=== PATIENT | male | born 1995 | race Caucasian/White ===

== ENCOUNTER → 2018-09-05 | Outpatient (CLI) | payer BC ==
--- NOTE | 2018-09-05 13:07 | XR ---
EXAMINATION TYPE: XR chest 2V DATE OF EXAM: 09/05/2018 COMPARISON: 10/19/2009 TECHNIQUE: PA and lateral views submitted. HISTORY: Cough FINDINGS: The lungs are clear and there is no pneumothorax, pleural effusion, or focal pneumonia. Chronic lef t AC joint injury suspected correlate clinically. IMPRESSION: 1. No acute process. 2. 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 Correlate clinical ly.
== END ==
LOC: RADXRMAIN 10:08
PROVIDERS: ATTEND Family Medicine
DX: S43.102A Unspecified dislocation of left acromioclavicular joint, initial encounter (principal); Z00.00 Encounter for general adult medical examination without abnormal findings
CPT/HCPCS: 71046

== ENCOUNTER 2018-09-23 23:45 | Emergency (ER) | payer BC ==
[2018-09-23 23:54] VITALS: BP 120/73; RESP 20; TEMP 97.9
[2018-09-24] MEDS ORDERED: IPRATROPIUM-ALBUTEROL 3 ML NEB INHALATION STA (00:40)
[2018-09-24] MEDS ORDERED: BENZONATATE 100 MG CAP PO STA (00:40)
--- NOTE | 2018-09-24 00:54 | ED ---
URI HPI - General Chief Complaint: Upper Respiratory Infection Stated Complaint: Cough Time Seen by Provider: 09/23/18 23:57 Source: patient, family Mode of arrival: ambulatory Limitations: no limitations - History of Present Illness Initial Comments: Kevin is a previously healthy 23-year-old male who presents to the emergency department today for reevaluation of a chronic cough. Patient reports that he' s had a cough for approximately 2-3 months duration. He has been seen by his primary care physician and was advised that he failed some of his breathing tests is not sure exactly which. Patient was advised to follow up with pulmonology but has been unable to obtain an appointment. Patient spent the last week in [place] for vacation and reports that while down there his cough was significantly worse which prompted him to go to an urgent care where he was prescribed a seven-day course of steroids and an albuterol inhaler. Patient reports he feels these improve his symptoms minimally. Patient comes the ER today because his family is concerned about his cough. Patient's currently staying at his parents house while on break from college. They've been distressed by, she has been coughing and they are concerned that this can impact his sleeping and his ability to focus at school when he returns to school tomorrow. Patient states that he actually wasn't concerned and didn't feel his cough is worsening today however it was distracting his father from watching a movie so they decided to come to the ER for reevaluation. denies any international travel, any travel to the [facility], any gave exploration. The patient is a nonsmoker. There is no family history of any chronic pulmonary diseases. Cough is not associated with any fevers, chills or chest pain. The cough is nonproductive. Patient doesn't feel that the cough is been getting better or worse over the past 2 months. Patient's primary complaint is that the cough keeps him from sleeping all night. - Related Data Home Medications Medication Instructions Recorded Confirmed Mometasone/Formoterol [Dulera 100 2 puff INHALATION BID 09/23/18 09/23/18 Mcg/5 Mcg Inhaler] Previous Rx's Medication Instructions Recorded Benzonatate [Tessalon Perles] 100 mg PO TID #30 cap 09/24/18 Allergies Allergy/AdvReac Type Severity Reaction Status Date / Time No Known Allergies Allergy Verified 09/23/18 23:53 Review of Systems ROS Statement: Those systems with pertinent positive or pertinent negative responses have been documented in the HPI. ROS Other: All systems not noted in ROS Statement are negative. Past Medical History Past Medical History: No Reported History History of Any Multi-Drug Resistant Organisms: None Reported Past Surgical History: Adenoidectomy, Ear Surgery Past Psychological History: No Psychological Hx Reported Smoking Status: Never smoker Past Alcohol Use History: Occasional Past Drug Use History: None Reported General Exam - General Exam Comments Initial Comments: Physical Exam GENERAL: Patient is well-developed and well-nourished. Patient is nontoxic and well- hydrated and is in no distress. HENT: Normocephalic, Atraumatic. EYES: PERRL, EOMI PULMONARY: Unlabored respirations. No audible rales rhonchi or wheezing was noted. The patient is observed to have a nonproductive dry cough intermittently during exam CARDIOVASCULAR: There is a regular rate and rhythm without any murmurs gallops or rubs. ABDOMEN: Soft and nontender with normal bowel sounds. SKIN: Skin is clear with no lesions or rashes and otherwise unremarkable. : Deferred NEUROLOGIC: Patient is alert and oriented x3. Moving all extremities spontaneously MUSCULOSKELETAL: Normal extremities with adequate strength and full range of motion. No lower extremity swelling or edema. No calf tenderness. PSYCHIATRIC: Normal psychiatric evaluation. Limitations: no limitations Limitations: no limitations Course Vital Signs 09/23/18 09/24/18 09/24/18 23:47 01:08 01:12 Temperature 97.9 F Pulse Rate 55 L 58 L 60 Respiratory 20 Rate Blood Pressure 120/73 O2 Sat by Pulse 99 Oximetry Medical Decision Making - Medical Decision Making The patient was seen and evaluated history was obtained from the patient and father at bedside this patient has had approximately 2 months of chronic cough he feels his PFTs at his primary care office his chest x-ray was unremarkable he is currently on steroids and albuterol with the plan to follow up with pulmonology I discussed further imaging including computed tomography scan however the patient father would like to avoid exposure to radiation. I discussed further symptomatically treatment with Flonase to reduce any postnasal drip, continuing steroids and albuterol and we'll attempt treatment with a DuoNeb here and will give Tesaronon Perlolegario. Patient family are agreeable to this. Disposition Clinical Impression: Chronic coughing Disposition: HOME SELF-CARE Instructions: Upper Respiratory Infection (ED) Prescriptions: Benzonatate [Tessalon Perles] 100 mg PO TID #30 cap Is patient prescribed a controlled substance at d/c from ED?: No Referrals: Laci Osman DO [Primary Care Provider] - 1-2 days
[2018-09-24 01:13] VITALS: PULSE 60
== END 2018-09-24 01:28 | disposition home or self-care (01) ==
LOC: EC 23:45
DX: R05 Cough (principal); R09.82 Postnasal drip; Z79.51 Long term (current) use of inhaled steroids
CPT/HCPCS: 94640; 99283